=== PATIENT | male | born 2000 | race Two or more races ===

== ENCOUNTER 2018-01-18 20:55 | Emergency (ER) | payer OTHER ==
[~2018-01-18] VITALS: Ht 170.2 cm; Wt 72.6 kg
[2018-01-18 21:12] VITALS: BP 126/71
--- NOTE | 2018-01-18 21:31 | Emergency Room Report ---
History of Present Illness General Chief Complaint: Medication Refill Source: Patient Present Illness HPI Travelling to [place] He ran out of his insulin pen. Requesting refill. He was started on new long- acting insulin recently. He hasn't taken his NovoLog today. He just ate dinner. Denies polyuria polydipsia, abdominal pain, fevers, chest pain, nausea, vomiting , diarrhea, dysuria. Allergies: Coded Allergies: No Known Allergies (Unverified , 01/18/18) Patient History Past Medical History: see triage record Social History: Denies: smoking Social History Narrative traveling to [facility] Reviewed Nursing Documentation: PMH: Agreed; PSxH: Agreed Nursing Documentation-PMH Hx Diabetes: Yes Review of Systems All Other Systems: negative except mentioned in HPI Physical Exam Vital Signs Date Time Temp Pulse Resp B/P (MAP) Pulse Ox O2 Delivery O2 Flow Rate FiO2 01/18/18 20:58 98.1 77 16 126/71 98 Room Air Sp02 EP Interpretation: reviewed, normal General Appearance: well appearing, no apparent distress Head: normocephalic, atraumatic Eyes: bilateral eye normal inspection, bilateral eye PERRL ENT: hearing grossly normal, normal voice, moist mucus membranes Neck: full range of motion, supple Respiratory: no respiratory distress, speaking full sentences Gastrointestinal: non tender Musculoskeletal: gait/station normal, normal range of motion Neurologic: alert, normal gait, grossly normal Psychiatric: mood/affect normal Skin: no rash Medical Decision Making Diagnostic Impression: Primary Impression: Diabetes Qualified Codes: E10.9 - Type 1 diabetes mellitus without complications Additional Impressions: Encounter for medication refill Hyperglycemia ER Course Patient presents requesting refill of insulin pen. No somatic complaints. Accucheck indicated. Accucheck 372 Offered patient to give insulin here but declined. Will take insulin when fills Rx. Patient stable for outpatient observation and treatment. Last Vital Signs Date Time Temp Pulse Resp B/P (MAP) Pulse Ox O2 Delivery O2 Flow Rate FiO2 01/18/18 21:52 98.5 86 18 118/79 100 Room Air Status: unchanged Disposition: HOME, SELF-CARE Condition: Stable Scripts Insulin Aspart* (NOVOLOG*) 100 Unit/1 Ml Insuln.pen 10 CU SUBQ BEFORE MEALS, #1 EA 1 Refill Prov: Dick Mai MD 01/18/18 Dick Mai MD Jan 18, 2018 21:31
[2018-01-18] MEDS ORDERED: NOVOLOG100 UNIT/3 SUBQ (21:38)
[2018-01-18 21:52] VITALS: BP 118/79
== END 2018-01-18 21:52 | disposition home or self-care (01) ==
LOC: EMR 21:36
DX: Z76.0 Encounter for issue of repeat prescription (principal); E10.65 Type 1 diabetes mellitus with hyperglycemia; Z79.4 Long term (current) use of insulin
CPT/HCPCS: 82962; 99282